=== PATIENT | male | born 1990 | race Caucasian/White ===

== ENCOUNTER 2020-03-25 13:13 | Outpatient (REF) | payer BC, SELFPAY | END 2020-03-25 13:14 | disposition home or self-care (01) | LOC: HO.LAB 13:13 | PROVIDERS: Visit Provider Internal Medicine | DX: Z20.828 Contact with and (suspected) exposure to other viral communicable diseases (principal) | CPT/HCPCS: 87635 ==

== ENCOUNTER 2020-05-16 09:17 | Outpatient (REF) | payer BC, SELFPAY ==
[2020-05-16 10:27] LABS: MANUAL DIFF FLAG NO
[2020-05-16 10:36] LABS: Basophils Percent Auto 0.6 % (0-2); Eosinophils Absolute Auto 0.2 X10*3/uL (0.0-0.4); Eosinophils Percent Auto 3.6 % (0-4); Hematocrit 45.6 % (42-52); Hemoglobin 15.2 g/dl (14.0-18.0); Imm Gran Abs Auto 0.01 X10*3/uL (0.00-0.03); Imm Gran Pct Auto 0.2 % (0.0-0.4); Lymphocytes Absolute Auto 2.3 X10*3/uL (1.2-4.9); Lymphocytes Percent Auto 42.9 % (20-40); Mean Corpuscular HGB Conc 33.3 g/dl (31.0-36.0); Mean Corpuscular Hemoglobin 30.3 pg (27.0-33.0); Mean Platelet Volume 11.9 fL (9.4-12.4); Monocytes Absolute Auto 0.5 X10*3/uL (0.1-1.2); Monocytes Percent Auto 9.6 % (2-11); Neutrophils Absolute Auto 2.3 X10*3/uL (2.0-8.3); Neutrophils Percent Auto 43.1 % (45-73); Platelet Count 198 X10*3/uL (160-400); Red Blood Count 5.01 X10*6/uL (4.60-5.80); Red Cell Distribution Width 13.5 % (11.0-16.0); White Blood Count 5.3 X10*3/uL (4.8-10.8)
[2020-05-16 10:57] LABS: Alanine Aminotransferase 57 U/L (0-40); Albumin Level 4.6 g/dL (3.5-5.0); Alkaline Phosphatase 71 U/L (39-117); Anion Gap 13 (12-20); Aspartate Amino Transferase 55 U/L (5-37); Bilirubin Total 0.5 mg/dL (0.0-1.0); Blood Urea Nitrogen 23 mg/dL (9-16); Calcium 9.6 mg/dL (8.4-10.2); Carbon Dioxide 26 mmol/L (22-29); Chloride 105 mmol/L (96-108); Cholesterol 219 mg/dL; Estimated Glomerular Filt Rate > 60; Glucose Fasting 89 mg/dL (60-99); HDL Cholesterol 60 mg/dL; LDL Cholesterol Calculated 147 mg/dl; Potassium 4.5 mmol/l (3.3-5.1); Sodium 139 mmol/L (135-145); Triglycerides 64 mg/dL
== END 2020-05-16 09:18 | disposition home or self-care (01) ==
LOC: HO.LAB 09:17
PROVIDERS: PCP Internal Medicine; Visit Provider Internal Medicine
DX: E11.9 Type 2 diabetes mellitus without complications (principal); Z00.00 Encounter for general adult medical examination without abnormal findings
CPT/HCPCS: 36415; 80053; 80061; 85025

== ENCOUNTER 2020-06-09 08:21 | Outpatient (REF) | payer BC, SELFPAY | END 2020-06-09 08:22 | disposition home or self-care (01) | LOC: HO.LAB 08:21 | PROVIDERS: PCP Internal Medicine; Visit Provider Internal Medicine | DX: Z20.822 Contact with and (suspected) exposure to COVID-19 (principal) | CPT/HCPCS: 36415; C9803; U0003 ==

== ENCOUNTER 2020-06-25 13:25 | Outpatient (REF) | payer BC, SELFPAY | END 2020-06-25 13:26 | disposition home or self-care (01) | LOC: HO.LAB 13:25 | PROVIDERS: PCP Internal Medicine; Visit Provider Internal Medicine | DX: Z20.822 Contact with and (suspected) exposure to COVID-19 (principal) | CPT/HCPCS: 36415; C9803; U0003 ==

== ENCOUNTER 2020-08-22 08:48 | Outpatient (REF) | payer BC, SELFPAY | END 2020-08-22 08:49 | disposition home or self-care (01) | LOC: HO.LAB 08:48 | PROVIDERS: Visit Provider Internal Medicine | DX: Z20.822 Contact with and (suspected) exposure to COVID-19 (principal) | CPT/HCPCS: 36415; C9803; U0003; U0005 ==

== ENCOUNTER 2020-12-14 06:57 | Emergency (ER) | payer BC, SELFPAY ==
[2020-12-14 06:59] VITALS: BP 102/57; PULSE 85; RESP 16; TEMP 36.6; O2SAT 97; BMI 26.9
--- NOTE | 2020-12-14 07:08 | ED_ITS ---
HPI - Allergic Reaction General Chief complaint: Allergic Reaction Stated complaint: allergic reaction Time Seen by Provider: 12/14/20 07:03 Source: patient Limitations: no limitations History of Present Illness MD complaint: allergic reaction, hives and facial swelling Onset (ago): hour(s) (1) Exposure: medication (antibiotic - leftover took due to sinus issue) Symptoms: rash, itching, facial swelling, lip swelling and hoarseness Severity: severe Treatment prior to arrival: none Previous Allergic Reaction History: prior ED visit(s) and anaphylaxis Related Data Home Medications Medication Instructions Recorded Confirmed doxycycline hyclate 100 mg capsule 100 mg PO DAILY 05/09/20 05/09/20 Previous Rx's Medication Instructions Recorded epinephrine 0.3 mg IM Q10M PRN #2 ea 12/14/20 famotidine [Pepcid] 20 mg PO DAILY 7 Days #30 tab 12/14/20 prednisone 40 mg PO DAILY 5 Days #10 tab 12/14/20 Allergies Allergy/AdvReac Type Severity Reaction Status Date / Time aspirin [ASA] Allergy Mild UNKNOWN Verified 12/14/20 06:59 amoxicillin Allergy Anaphylaxis Verified 12/14/20 07:21 Review of Systems Review of Systems: Constitutional : No Fever, No Chills ENT/Mouth : positive oral swelling, pos Hoarseness, No Swallowing Difficulty Eyes: No Eye Pain, No Swelling, No Redness Cardiovascular : No Chest Pain, pos SOB Respiratory : No Cough, No Sputum, No Wheezing, No Smoke Exposure, No Dyspnea Gastrointestinal : No Nausea, No Vomiting, No Diarrhea, No abdominal Pain Genitourinary : No Dysuria, No Urinary Frequency, No Hematuria Musculoskeletal : No joint pain, No Myalgias, No Joint Swelling Skin : pos Skin Lesions, positive rash Neuro : No Weakness, No Numbness, No Headache Psych : No Anxiety/Panic, No Depression Heme/Lymph: No Bruising, No Lymphadenopathy Endocrine : No Polyuria, No Polydipsia All other systems reviewed and are negative [facility] Past Medical History Attestation statement: The following information was validated with the patient. Medical History Anaphylaxis Seasonal allergies Surgical History No pertinent past surgical history Family History Family History Father No problems noted. Mother No problems noted. Social History Social History (Updated 12/14/20 @ 07:10 by Raissa Guthrie DO) Alcohol intake: current Alcohol intake frequency: a few times a week Patient Tobacco Use Status: Never used Tobacco Advance Directives: No Advance Directives Information Provided: No Physical Exam Vital Signs: Vital Signs: Last Vital Signs Temp 97.8 F 12/14/20 06:59 Pulse 76 12/14/20 07:56 Resp 17 12/14/20 07:56 BP 116/57 L 12/14/20 07:56 Pulse Ox 99 12/14/20 07:56 Body Mass Index 26.9 Appearance: Alert. Oriented X3. Anxious mild acute distress. Eyes: Pupils equal, round and reactive to light. ENT: lip upper and lower moderate swelling no swelling noted on tongue or posteriorly voice sounds raspy Neck: Normal inspection. Neck supple. CVS: Normal heart rate and rhythm. Pulses normal. Respiratory: No respiratory distress. Breath sounds normal. no stridor Abdomen: Soft and nontender. Skin: Skin warm and dry. Erythema and diffuse hives Extremities: No lower extremity edema. No calf ttp Neuro: Oriented X 3. No motor deficit. No sensory deficit. Course Course Course Narrative: patient drastically improved at this time PATIENTS ALLERGY IS AMOXICILLIN symptoms fully resolved at 2 hour davis wants to leave, stable for DC MDM - Allergic Reaction MDM Narrative Medical decision making narrative: 30 yo male with prior allergic reaction requiring epi - unknown cause at that time was Rx epi but did not fill prescription today took a leftover antibiotics as he thought he had a sinus infection in 1 hour diffuse hives lip swelling and raspy itching voice, on arrival airway patent - IM epi, solumedrol, benadryl, pepcid ordered, patient trying to find the name of the antibiotic, will need close observation and possible repeat dosing of epi. Critical Care Time Critical Care Time Critical Care Time: Yes Total Critical Care Time: 35 Attestation: anaphylaxis care, IM epi I attest to this time spent taking care of the patient Discharge Plan Discharge Clinical Impression: Anaphylaxis Qualifiers: Encounter type: initial encounter Qualified Code(s): T78.2XXA - Anaphylactic shock, unspecified, initial encounter Angioedema Qualifiers: Encounter type: initial encounter Qualified Code(s): T78.3XXA - Angioneurotic edema, initial encounter Patient Disposition: Home, Self-Care Instructions: Anaphylaxis (ED), Angioedema (ED) Additional Instructions: return to ED for any worsening symptoms or concerns DO NOT TAKE AMOXICILLIN PLEASE SEE AN ADMINISTRATIVE COORDINATOR Prescriptions: New prednisone 20 mg tablet 40 mg PO DAILY 5 Days Qty: 10 RF: 0 famotidine [Pepcid] 20 mg tablet 20 mg PO DAILY 7 Days Qty: 30 RF: 0 epinephrine 0.3 mg/0.3 mL auto-injector 0.3 mg IM Q10M PRN (Reason: anaphylaxis) Qty: 2 RF: 0 No Action doxycycline hyclate 100 mg capsule 100 mg PO DAILY RF: 0 Stand Alone Forms: Work/School Release
[2020-12-14 07:13] VITALS: BP 110/52; PULSE 78
[2020-12-14] MEDS: methylPREDNISolone Sod Succ 125 MG/2 ML VIAL IVPUSH (07:13)
[2020-12-14] MEDS: EPINEPHrine 1 MG/ML VIAL 0.3 MG IM (07:13)
[2020-12-14] MEDS: diphenhydrAMINE HCL 50 MG/ML VIAL 25 MG IVPUSH (07:15)
[2020-12-14] MEDS: Famotidine/PF 20 MG/2 ML VIAL IVPUSH (07:15)
[2020-12-14] MEDS: 0.9 % Sodium Chloride 1,000 ML 999 ML IVCONT (07:16)
[2020-12-14 07:56] VITALS: BP 116/57; PULSE 76; RESP 17; O2SAT 99
== END 2020-12-14 09:09 | disposition home or self-care (01) ==
PROVIDERS: Emergency Provider Emergency Medicine; PCP Internal Medicine
DX: L23.9 Allergic contact dermatitis, unspecified cause (principal); R22.9 Localized swelling, mass and lump, unspecified; T78.2XXA Anaphylactic shock, unspecified, initial encounter; T78.3XXA Angioneurotic edema, initial encounter; Z79.899 Other long term (current) drug therapy
CPT/HCPCS: 96365; 96372; 96375; 99283; 99284; J0171; J1200; J2930

== ENCOUNTER 2021-06-02 06:51 | Outpatient (REF) | payer BC, SELFPAY ==
[2021-06-02 07:02] LABS: MANUAL DIFF FLAG NO
[2021-06-02 07:37] LABS: Basophils Percent Auto 0.2 % (0-2); Eosinophils Percent Auto 0.2 % (0-4); Hematocrit 47.6 % (42.0-52.0); Hemoglobin 15.3 g/dl (14.0-18.0); Imm Gran Abs Auto 0.02 X10*3/uL (0.00-0.03); Imm Gran Pct Auto 0.3 % (0.0-0.4); Lymphocytes Absolute Auto 1.4 X10*3/uL (1.2-4.9); Lymphocytes Percent Auto 24.4 % (20-40); Mean Corpuscular HGB Conc 32.1 g/dl (31.0-36.0); Mean Corpuscular Hemoglobin 29.7 pg (27.0-33.0); Mean Corpuscular Volume 92.4 fL (80.0-98.0); Mean Platelet Volume 11.3 fL (9.4-12.4); Monocytes Absolute Auto 0.3 X10*3/uL (0.1-1.2); Monocytes Percent Auto 5.6 % (2-11); Neutrophils Absolute Auto 4.1 x10*3/uL (2.0-8.3); Neutrophils Percent Auto 69.3 % (45-73); Platelet Count 213 X10*3/uL (160-400); Red Blood Count 5.15 X10*6/uL (4.60-5.80); Red Cell Distribution Width 13.7 % (11.0-16.0); White Blood Count 5.9 X10*3/uL (4.8-10.8)
[2021-06-02 08:00] LABS: Alanine Aminotransferase 68 U/L (0-40); Albumin Level 4.7 g/dL (3.5-5.0); Alkaline Phosphatase 66 U/L (39-117); Anion Gap 11 (12-20); Aspartate Amino Transferase 37 U/L (5-37); Bilirubin Total 0.3 mg/dL (0.0-1.0); Blood Urea Nitrogen 18 mg/dL (9-16); Carbon Dioxide 27 mmol/L (22-29); Chloride 106 mmol/L (96-108); Cholesterol 188 mg/dL; Estimated Glomerular Filt Rate > 60; Glucose Fasting 117 mg/dL (60-99); HDL Cholesterol 60 mg/dL; LDL Cholesterol Calculated 119 mg/dl; Potassium 4.4 mmol/L (3.3-5.1); Sodium 140 mmol/L (135-145); Total Protein 8.4 g/dL (6.5-8.0); Triglycerides 46 mg/dL
[2021-06-02 08:20] LABS: Thyroid Stimulating Hormone 0.57 uIU/mL (0.32-4.0)
[2021-06-06 19:21] LABS: Testosterone, Total 493 ng/dL (250-1100)
== END 2021-06-02 06:52 | disposition home or self-care (01) ==
LOC: HO.LAB 06:51
PROVIDERS: PCP Internal Medicine; Visit Provider Internal Medicine
DX: Z00.00 Encounter for general adult medical examination without abnormal findings (principal); Z13.0 Encounter for screening for diseases of the blood and blood-forming organs and certain disorders involving the immune mechanism; R53.83 Other fatigue
CPT/HCPCS: 36415; 80053; 80061; 84402; 84403; 84443; 85025

== ENCOUNTER 2021-06-02 09:53 | Outpatient (REF) | payer BC, SELFPAY ==
[2021-06-02 12:28] LABS: Binax Internal Control QC Valid; Binax Lot number: 9864; Binax Now Covid-19 Ag Positive (Negative)
== END 2021-06-02 09:54 | disposition home or self-care (01) ==
LOC: HO.LAB 09:53
PROVIDERS: Visit Provider Internal Medicine
DX: Z20.822 Contact with and (suspected) exposure to COVID-19 (principal)
CPT/HCPCS: 36415

== ENCOUNTER 2021-10-01 22:08 | Emergency (ER) | payer BC, SELFPAY ==
[2021-10-01 22:37] VITALS: BP 125/77; PULSE 66; RESP 17; TEMP 36.6; O2SAT 99; BMI 27.8
[2021-10-01 22:50] VITALS: BP 125/77; PULSE 65; RESP 18; TEMP 36.6; O2SAT 99
--- NOTE | 2021-10-01 22:55 | PC.NURSE ---
pt presents to dept after he developed a rash over about 2 weeks ago. rash covers entire body with exception of the face and palms of hands. pt admits he did change laundry detergents recently. denies SOB/chest pain, denies fever, chills, recent infection, travel, or sick contacts
--- NOTE | 2021-10-01 23:06 | ED_ITS ---
HPI - Skin/Abscess/Foreign Bdy General Chief complaint: Skin/Abscess/Foreign Body Stated complaint: rash Source: patient Mode of arrival: ambulatory Limitations: no limitations History of Present Illness HPI narrative: 31-year-old male presents with 2 weeks of a a full-body rash that started after he changed laundry detergents. Patient has been taking Benadryl every 6 hours with poor effect and also used his EpiPen yesterday. MD complaint: rash Onset (ago): week(s) (2) Tetanus up to date: yes Location: generalized Severity: moderate Severity scale (1-10): 7 Quality: burning Pain Consistency: constant Relieving factors: none Exacerbating factors: palpation and movement Context: other (New household products) Associated symptoms: itching Treatments prior to arrival: OTC topical medication and Benadryl Related Data Previous Rx's Medication Instructions Recorded epinephrine 0.3 mg/0.3 mL 0.3 mg (0.3 mL) IM Q10M PRN #2 ea 12/14/20 injection, auto-injector epinephrine 0.3 mg/0.3 mL 0.3 mg (0.3 mL) IM Q4H PRN #1 ea 10/02/21 injection, auto-injector (EpiPen 2-Rad) famotidine 20 mg tablet (Pepcid) 20 mg PO BID 7 Days #14 tab 10/02/21 prednisone 20 mg tablet 60 mg PO DAILY 7 Days #21 tab 10/02/21 Allergies Allergy/AdvReac Type Severity Reaction Status Date / Time aspirin [ASA] Allergy Mild UNKNOWN Verified 05/11/21 08:50 amoxicillin Allergy Anaphylaxis Verified 05/11/21 08:50 Review of Systems Review of Systems: Constitutional: No Fever, No Chills ENT/Mouth: No oral swelling, No Hoarseness, No Swallowing Difficulty Eyes: No Eye Pain, No Swelling, No Redness Cardiovascular: No Chest Pain, No SOB Respiratory: No Cough, No Sputum, No Wheezing, No Smoke Exposure, No Dyspnea Gastrointestinal: No Nausea, No Vomiting, No Diarrhea, No abdominal Pain Genitourinary: No Dysuria, No Urinary Frequency, No Hematuria Musculoskeletal: No joint pain, No Myalgias, No Joint Swelling Skin: No Skin Lesions, positive rash Neuro: No Weakness, No Numbness, No Headache Psych: No Anxiety/Panic, No Depression Heme/Lymph: No Bruising, No Lymphadenopathy Endocrine: No Polyuria, No Polydipsia Yes all other systems are reviewed and are negative [facility] Past Medical History Attestation statement: The following information was validated with the patient. Source: old records reviewed Medical History Anaphylaxis Seasonal allergies Surgical History No pertinent past surgical history Family History Family History Father No problems noted. Mother No problems noted. Social History Social History Housing: House Alcohol intake: current Alcohol intake frequency: a few times a week Patient Tobacco Use Status: Never used Tobacco e-Cigarette/Vaping Use: Never Used Second Hand Smoke Exposure: No Advance Directives: No service: No Current occupational status: employed Cognitive needs: No Hearing needs: No Vision needs: No Physical Exam Vital Signs: Vital Signs: Last Vital Signs Temp 98 F 10/01/21 22:50 Pulse 65 10/01/21 22:50 Resp 18 10/01/21 22:50 BP 125/77 10/01/21 22:50 Pulse Ox 99 10/01/21 22:50 BMI result Body Mass Index 27.8 Appearance: Alert. Oriented X3. No acute distress. Eyes: Pupils equal, round and reactive to light. ENT: Pharynx normal. Neck: Normal inspection. Neck supple. CVS: Normal heart rate and rhythm. Pulses normal. Respiratory: No respiratory distress. Lung sounds clear to all lobes. Abdomen: Soft and nontender. Skin: Diffuse erythematous rash consistent with contact dermatitis, Skin warm and dry. Normal skin color. Normal skin turgor. Extremities: No lower extremity edema. Gait well-balanced well coordinated. Neuro: No motor deficit. No sensory deficit. Cranial nerves 2-12 intact. Course Course Course Narrative: 31-year-old male presents diffuse generalized erythematous rash consistent with contact dermatitis. Stated that he used a new laundry detergent approximately 2 weeks ago. Has been taking Benadryl 50 mg every 6 hours with poor effect. Thought that his EpiPen would be better so he used it yesterday. Patient does not have any wheezing, stridor, has a clear airway. Will give Solu-Medrol and Pepcid. 23:57 rash is less red, will discharge home with prednisone 60 mg for the next 5 days. Pepcid 20 mg twice a day for the next 5 days. Patient will continue using Benadryl every 6 hours as needed. He does understand that he must discontinue using the product that is giving him the rash. EpiPen teaching provided by this DEVELOPMENT TECHNOLOGIST. Patient does understand that he can only use EpiPen if he is having airway issues. Thank you for choosing this emergency department for evaluation. Please follow-up with primary care physician as needed. Return to the emergency department for any new, concerning, or worsening symptoms. MDM - Skin/Abscess/Foreign Bdy Differential Diagnosis Differential diagnosis: Likely viral exanthem, urticaria and contact dermatitis Medical Records Attestation: I reviewed the patient's medical records. Discharge Plan Discharge Clinical Impression: Viral exanthem, Contact dermatitis, Allergic reaction Patient Disposition: Home, Self-Care Instructions: Contact Dermatitis (ED), General Allergic Reaction (ED), Allergy Testing (ED) Additional Instructions: You were evaluated for allergic reaction. Please take prednisone 60 mg for the next 7 days. Take Pepcid 20 mg twice a day for the next 7 days. Take Benadryl 50 mg every 6 hours as needed for itching. You must follow-up with primary care physician for allergy testing. Only use your EpiPen if you have airway issues. That means use EpiPen only if you are having trouble breathing. Thank you for choosing this emergency department for evaluation. Please follow-up with primary care physician as needed. Return to the emergency department for any new, concerning, or worsening symptoms. Prescriptions: New prednisone 20 mg tablet 60 mg PO DAILY 7 Days Qty: 21 0RF famotidine [Pepcid] 20 mg tablet 20 mg PO BID 7 Days Qty: 14 0RF Rx Instructions: May substitute for medication covered by insurance epinephrine [EpiPen 2-Rad] 0.3 mg/0.3 mL auto-injector 0.3 mg IM Q4H PRN (Reason: anaphylaxis) Qty: 1 0RF No Action epinephrine 0.3 mg/0.3 mL auto-injector 0.3 mg IM Q10M PRN (Reason: anaphylaxis) Qty: 2 0RF Rx Instructions: for 2 doses Referrals: Lon Morris MD [Primary Care Provider] - (Allergic reaction)
[2021-10-01] MEDS: methylPREDNISolone Sod Succ 125 MG/2 ML VIAL IVPUSH (23:32)
[2021-10-01] MEDS: Famotidine/PF 20 MG/2 ML VIAL IVPUSH (23:32)
== END 2021-10-02 00:25 | disposition home or self-care (01) ==
PROVIDERS: Emergency Provider Emergency Medicine Emergency Medical Services; PCP Internal Medicine
DX: L23.9 Allergic contact dermatitis, unspecified cause (principal); B09 Unspecified viral infection characterized by skin and mucous membrane lesions; Z79.899 Other long term (current) drug therapy
CPT/HCPCS: 96374; 96375; 99284; J2930

== ENCOUNTER 2023-05-20 09:39 | Outpatient (AMB) | payer OTHER, SELFPAY ==
[2023-05-20 09:42] VITALS: BP 124/82; PULSE 60; O2SAT 98; BMI 30.7
--- NOTE | 2023-05-20 09:42 | MHC.PC.OV ---
Vital Signs 05/20/23 09:42 Height 5 ft 11 in Weight 220 lb BMI 30.7 BP 124/82 Blood Pressure Location Lt brachial Position Sitting Pulse 60 Pulse Source Pulse Oximeter Pulse Oximetry (%) 98 Oxygen Delivery Method Room Air Intake Visit Reasons: PE Meter Changes Records Clerk Required: No Reed Man: Not Required per policy Accompanied by: Self / Same As Patient Allergies aspirin [ASA] Allergy (Mild, Verified 05/20/23 09:42) UNKNOWN amoxicillin Allergy (Verified 05/20/23 09:42) Anaphylaxis Medication List - Last Reconciled 05/20/23 by Lon Morris MD epinephrine 0.3 mg (0.3 mL) IM Q10M PRN epinephrine (EpiPen 2-Rad) 0.3 mg (0.3 mL) IM Q4H PRN ibuprofen 800 mg PO Q8H PRN Tobacco use date assessed: 05/20/23 Dental Screening Dental Screen Date: 05/20/23 Did you have a dental visit in the last 12 months?: Yes Did you have a dental problem in the last 6 months where you did not have access to dental care?: No Was dental information given to patient?: Patient has dentist HPI PE HPI Details healthy; [facility] Medical History Anaphylaxis Seasonal allergies Surgical History No pertinent past surgical history Family History Father No problems noted. Mother No problems noted. Social History Housing: House Alcohol intake: current Alcohol intake frequency: a few times a week Patient Tobacco Use Status: Never used Tobacco e-Cigarette/Vaping Use: Never Used Second Hand Smoke Exposure: No service: No Current occupational status: employed Cognitive needs: No Hearing needs: No Vision needs: No Questionnaire PHQ-9 Over the last 2 weeks, how often have you been bothered by any of the following problems? 1. Little interest or pleasure in doing things: not at all 2. Feeling down, depressed, or hopeless: not at all 3. Trouble falling or staying asleep, or sleeping too much: not at all 4. Feeling tired or having little energy: not at all 5. Poor appetite or overeating: not at all 6. Feeling bad about yourself - or that you are a failure or have let yourself or your family down: not at all 7. Trouble concentrating on things, such as reading the newspaper or watching television: not at all 8. Moving or speaking so slowly that other people could have noticed. Or the opposite - being so fidgety or restless that you have been moving around a lot more than usual: not at all 9. Thoughts that you would be better off or of hurting yourself in some way: not at all Total score: 0 Depression Screening Interpretation: Negative Depression Screening Done: Yes 08756 - PHQ-9 Billing: Yes Source: Developed by Drs. Eloy Wills, Lori Matute, Brice Garcia and colleagues, with an educational neeraj from [employer]. Thrive Questionnaire Date Thrive assessed: 05/20/23 I am a: Patient What is your living situation today?: I have a steady place to live Within the past 12 months, did the food you bought not last and you didn't have the money to get more?: Never true Within the past 12 months, did you worry whether your food would run out before you got money to buy more?: Never true Do you have trouble paying for medicines?: No Do you have trouble getting transportation to medical appointments?: No Do you have trouble paying your heating and electricity bill?: No Do you have trouble taking care of your child, family member or friend?: No Do you have trouble with day-to-day activities such as bathing, preparing meals, shopping, managing finances, etc.?: No Are you currently unemployed and looking for a job?: No Are you interested in more education?: No Please select the resources that you would like help with: None AUDIT C Alcohol Use Questionnaire (AUDIT-C) 1. How often do you have a drink containing alcohol?: Monthly or less 2. How many drinks containing alcohol do you have on a typical day when you are drinking?: 1 or 2 3. How often do you have six or more drinks on one occasion?: Never Total Score: 1 MARLEEN-7 AMB Questionnaire MARLEEN-7 Date MARLEEN - 7 assessed: 05/20/23 Feeling nervous, anxious, or on edge: 0 = Not at all Not being able to stop or control worryin = Not at all Worrying too much about different things: 0 = Not at all Trouble relaxin = Not at all Being so restless that it is hard to sit still: 0 = Not at all Becoming easily annoyed or irritable: 0 = Not at all Feeling afraid as if something awful might happen: 0 = Not at all Total MARLEEN-7 score (0-4 normal; 5-9 mild; 10-14 moderate; 15-21 severe): 0 Source: Developed by Drs. Eloy Wills, Lori Matute, Brice Garcia and colleagues, with an educational neeraj from [employer]. MARLEEN-7 Assessment Billing MARLEEN-7 Assessment Tool: MARLEEN-7 Assessment 28693 Review of Systems Const Denies chills, Denies fatigue, Denies headache(s) and Denies weight loss Eyes Denies change in vision, Denies diplopia and Denies eye pain ENT Denies vertigo, Denies dizziness, Denies headache(s) and Denies nasal discharge Card Denies chest pain, Denies rapid heart rate and Denies dyspnea on exertion Resp Denies chest congestion, Denies cough, Denies pain with cough and Denies dyspnea on exertion GI Denies abdominal pain, Denies hematochezia and Denies change in bowel habits Musc Denies myalgias, Denies arthralgias and Denies joint swelling Skin/Breast Denies lesions and Denies unusual bruising Neuro Denies vertigo, Denies dizziness, Denies headache(s) and Denies focal weakness Endo Denies fatigue Physical exam (Primary Care) Vital Signs: Last Vital Signs Pulse 60 05/20/23 09:42 BP 124/82 05/20/23 09:42 Pulse Ox 98 05/20/23 09:42 Oxygen Delivery Method Room Air 05/20/23 09:42 BMI result Body Mass Index 30.7 Tobacco/Smoking Status: Tobacco use Status Tobacco use date assessed 05/20/23 05/20/23 09:43 Patient Tobacco Use Status Never used Tobacco 05/20/23 09:43 e-Cigarette/Vaping Use Never Used 05/20/23 09:43 PHQ-9: PHQ-9 Score PHQ-9: Total score 0 05/20/23 09:43 Depression Screening Interpretation: Negative Thrive Assessment: Date of Thrive Assessment Date Thrive assessed 05/20/23 05/20/23 09:43 Const General: cooperative, healthy appearing and no acute distress Orientation/consciousness: oriented to person, oriented to place and oriented to time HENMT Head: Yes normal to inspection, Yes normocephalic and Yes atraumatic Mouth: Normal oral and palatal mucosa present and tongue normal Throat: Yes posterior oropharynx normal and Yes uvula midline Eyes General: appearance normal, both eyes and all related structures Neck Neck: Yes normal visual inspection, Yes full ROM and Yes no lymphadenopathy Thyroid: Thyroid normal Carotids: normal carotid upstroke Chest Chest palpation & inspection: normal inspection of the chest Resp Effort & Inspection: normal respiratory effort and able to speak in complete sentences Auscultation: clear to auscultation bilaterally Cardio Jugular venous distension: no JVD Palpation: normal PMI Rate: regular rate Rhythm: regular rhythm Heart sounds: S1 normal heart sound present and S2 normal heart sound present GI Inspection: Yes normal to inspection Palpation (GI): Soft to palpation and No hepatosplenomegaly present Auscultation: normal bowel sounds General: Yes no CVA tenderness Back/Spine/Pelvis Back: no CVA tenderness Skin General skin exam: no rashes or lesions noted Neuro General: oriented to person, oriented to place and oriented to time Extrem General: Yes normal to inspection and Yes full ROM Assessment and Plan Assessment & Plan (1) Physical exam: Code(s): Z00.00 - Encounter for general adult medical examination without abnormal findings Plan: stable; do labs Orders: Orders Lipid Panel Today E78.5 - Hyperlipidemia, unspecified Complete Blood Count Auto Diff Today D64.9 - Anemia, unspecified Comprehensive [place]. Panel Fast Today N28.9 - Disorder of kidney and ureter, unspecified Coding Level of Care Code Est Pt Prev Care 18-39y(37697) Diagnoses Physical exam Z00.00 Additional Codes MARLEEN-7 Assessment Billing - MARLEEN-7 Assessment Tool: MARLEEN-7 Assessment [id number] ([id number])
== END 2023-05-20 09:54 | disposition home or self-care (01) ==
PROVIDERS: Visit Provider Internal Medicine
DX: Z00.00 Encounter for general adult medical examination without abnormal findings (principal)
CPT/HCPCS: 99395

== ENCOUNTER 2023-05-20 10:01 | Outpatient (REF) | payer OTHER, SELFPAY ==
[2023-05-20 10:16] LABS: MANUAL DIFF FLAG NO
[2023-05-20 10:36] LABS: Basophils Absolute Auto 0.1 X10*3/uL (0.0-0.2); Basophils Percent Auto 0.9 % (0-2); Eosinophils Absolute Auto 0.6 X10*3/uL (0.0-0.4); Eosinophils Percent Auto 8.1 % (0-4); Hematocrit 47.8 % (42.0-52.0); Hemoglobin 15.9 g/dl (14.0-18.0); Imm Gran Abs Auto 0.02 X10*3/uL (0.00-0.03); Imm Gran Pct Auto 0.3 % (0.0-0.4); Lymphocytes Absolute Auto 2.3 X10*3/uL (1.2-4.9); Lymphocytes Percent Auto 34.3 % (20-40); Mean Corpuscular HGB Conc 33.3 g/dl (31.0-36.0); Mean Corpuscular Volume 90.2 fL (80.0-98.0); Mean Platelet Volume 11.2 fL (9.4-12.4); Monocytes Absolute Auto 0.7 X10*3/uL (0.1-1.2); Monocytes Percent Auto 10.2 % (2-11); Neutrophils Absolute Auto 3.2 x10*3/uL (2.0-8.3); Neutrophils Percent Auto 46.2 % (45-73); Platelet Count 208 X10*3/uL (160-400); Red Cell Distribution Width 13.7 % (11.0-16.0); White Blood Count 6.8 X10*3/uL (4.8-10.8)
[2023-05-20 11:23] LABS: Alanine Aminotransferase 39 U/L (0-40); Albumin Level 4.6 g/dL (3.5-5.0); Alkaline Phosphatase 87 U/L (39-117); Anion Gap 12 (12-20); Aspartate Amino Transferase 37 U/L (5-37); Bilirubin Total 0.7 mg/dL (0.0-1.0); Blood Urea Nitrogen 17 mg/dL (9-16); Calcium 9.8 mg/dL (8.4-10.2); Carbon Dioxide 27 mmol/L (22-29); Chloride 104 mmol/L (96-108); Cholesterol 204 mg/dL (<200); Estimated Glomerular Filt Rate > 60; Glucose Fasting 92 mg/dL (60-99); HDL Cholesterol 64 mg/dL (>40); LDL Cholesterol Calculated 127 mg/dL (<100); Potassium 4.4 mmol/L (3.3-5.1); Sodium 139 mmol/L (135-145); Total Protein 8.4 g/dL (6.5-8.0); Triglycerides 65 mg/dL (<150)
== END 2023-05-20 10:02 | disposition home or self-care (01) ==
LOC: HO.LAB 10:01
PROVIDERS: PCP Internal Medicine; Visit Provider Internal Medicine
DX: E78.5 Hyperlipidemia, unspecified (principal); D64.9 Anemia, unspecified; N28.9 Disorder of kidney and ureter, unspecified
CPT/HCPCS: 36415; 80053; 80061; 85025

== ENCOUNTER 2024-05-28 10:12 | Outpatient (AMB) | payer OTHER, SELFPAY ==
[2024-05-28 10:18] VITALS: BP 126/84; PULSE 93; O2SAT 93; BMI 30.8
--- NOTE | 2024-05-28 10:18 | A.OFFPC_ITS ---
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 Accompanied by: Self / Same As Patient Allergies aspirin [ASA] Allergy (Mild, Verified 05/28/24 10:20) UNKNOWN amoxicillin Allergy (Verified 05/28/24 10:20) Anaphylaxis Medication List - Last Reconciled 05/28/24 by Lon Morris MD epinephrine 0.3 mg (0.3 mL) IM Q10M PRN epinephrine (EpiPen 2-Rad) 0.3 mg (0.3 mL) IM Q4H PRN ibuprofen 800 mg PO Q8H PRN Tobacco use date assessed: 05/28/24 Dental Screening Dental Screen Date: 05/28/24 Did you have a dental visit in the last 12 months?: Yes Did you have a dental problem in the last 6 months where you did not have access to dental care?: No Was dental information given to patient?: Patient has dentist HPI pe HPI Details Healthy PFSH Medical History Anaphylaxis Seasonal allergies Surgical History No pertinent past surgical history Family History Father No problems noted. Mother No problems noted. Social History Housing: House Alcohol intake: current Alcohol intake frequency: a few times a week Patient Tobacco Use Status: Never used Tobacco e-Cigarette/Vaping Use: Never Used Second Hand Smoke Exposure: No service: No Current occupational status: employed Cognitive needs: No Hearing needs: No Vision needs: No Questionnaire PHQ-9 Over the last 2 weeks, how often have you been bothered by any of the following problems? 1. Little interest or pleasure in doing things: not at all 2. Feeling down, depressed, or hopeless: not at all 3. Trouble falling or staying asleep, or sleeping too much: not at all 4. Feeling tired or having little energy: not at all 5. Poor appetite or overeating: not at all 6. Feeling bad about yourself - or that you are a failure or have let yourself o r your family down: not at all 7. Trouble concentrating on things, such as reading the newspaper or watching television: not at all 8. Moving or speaking so slowly that other people could have noticed. Or the opposite - being so fidgety or restless that you have been moving around a lot more than usual: not at all 9. Thoughts that you would be better off or of hurting yourself in some way: not at all Total score: 0 Depression Screening Interpretation: Negative Depression Screening Done: Yes 62639 - PHQ-9 Billing: Yes Source: Developed by Drs. Eloy Wills, Lori Matute, Brice hyatt nd colleagues, with an educational neeraj from [employer]. Thrive Questionnaire Date Thrive assessed: 05/28/24 I am a: Patient What is your living situation today?: I have a steady place to live Within the past 12 months, did the food you bought not last and you didn't have the money to get more?: Never true Within the past 12 months, did you worry whether your food would run out before you got money to buy more?: Never true Do you have trouble paying for medicines?: No Do you have trouble getting transportation to medical appointments?: No Do you have trouble paying your heating and electricity bill?: No Do you have trouble taking care of your child, family member or friend?: No Do you have trouble with day-to-day activities such as bathing, preparing meals, shopping, managing finances, etc.?: No Are you currently unemployed and looking for a job?: No Are you interested in more education?: No Please select the resources that you would like help with: None THRIVE Score: 0 AUDIT C Alcohol Use Questionnaire (AUDIT-C) 1. How often do you have a drink containing alcohol?: Monthly or less 2. How many drinks containing alcohol do you have on a typical day when you are drinking?: 1 or 2 3. How often do you have six or more drinks on one occasion?: Never Total Score: 1 MARLEEN-7 AMB Questionnaire MARLEEN-7 Date MARLEEN - 7 assessed: 05/28/24 Feeling nervous, anxious, or on edge: 0 = Not at all Not being able to stop or control worryin = Not at all Worrying too much about different things: 0 = Not at all Trouble relaxin = Not at all Being so restless that it is hard to sit still: 0 = Not at all Becoming easily annoyed or irritable: 0 = Not at all Feeling afraid as if something awful might happen: 0 = Not at all Total MARLEEN-7 score (0-4 normal; 5-9 mild; 10-14 moderate; 15-21 severe): 0 Source: Developed by Drs. Eloy Wills, Lori Matute, Brice Garcia and colleagues, with an educational neeraj from [employer]. MARLEEN-7 Assessment Billing MARLEEN-7 Assessment Tool: MARLEEN-7 Assessment 76963 Review of Systems Const Denies chills, Denies fatigue, Denies headache(s) and Denies weight loss Eyes Denies change in vision, Denies diplopia and Denies eye pain ENT Denies vertigo, Denies dizziness, Denies headache(s) and Denies nasal discharge Card Denies chest pain, Denies rapid heart rate and Denies dyspnea on exertion Resp Denies chest congestion, Denies cough, Denies pain with cough and Denies dyspnea on exertion GI Denies abdominal pain, Denies hematochezia and Denies change in bowel habits Musc Denies myalgias, Denies arthralgias and Denies joint swelling Skin/Breast Denies lesions and Denies unusual bruising Neuro Denies vertigo, Denies dizziness, Denies headache(s) and Denies focal weakness Endo Denies fatigue Physical exam (Primary Care) Vital Signs: Last Vital Signs Pulse 93 05/28/24 10:18 BP 126/84 05/28/24 10:18 Pulse Ox 93 05/28/24 10:18 Oxygen Delivery Method Room Air 05/28/24 10:18 BMI result Body Mass Index 30.8 Tobacco/Smoking Status: Tobacco use Status Tobacco use date assessed 05/28/24 05/28/24 10:22 Patient Tobacco Use Status Never used Tobacco 05/28/24 10:22 e-Cigarette/Vaping Use Never Used 05/28/24 10:22 PHQ-9: PHQ-9 Score PHQ-9: Total score 0 05/28/24 10:31 Depression Screening Interpretation: Negative Thrive Assessment: Date of Thrive Assessment Date Thrive assessed 05/28/24 05/28/24 10:22 Const General: cooperative, healthy appearing and no acute distress Orientation/consciousness: oriented to person, oriented to place and oriented to time HENAZ Head: Yes normal to inspection, Yes normocephalic and Yes atraumatic Mouth: Normal oral and palatal mucosa present and tongue normal Throat: Yes posterior oropharynx normal and Yes uvula midline Eyes General: appearance normal, both eyes and all related structures Neck Neck: Yes normal visual inspection, Yes full ROM and Yes no lymphadenopathy Thyroid: Thyroid normal Carotids: normal carotid upstroke Chest Chest palpation & inspection: normal inspection of the chest Resp Effort & Inspection: normal respiratory effort and able to speak in complete sentences Auscultation: clear to auscultation bilaterally Cardio Jugular venous distension: no JVD Palpation: normal PMI Rate: regular rate Rhythm: regular rhythm Heart sounds: S1 normal heart sound present and S2 normal heart sound present GI Inspection: Yes normal to inspection Palpation (GI): Soft to palpation and No hepatosplenomegaly present Auscultation: normal bowel sounds General: Yes no CVA tenderness Back/Spine/Pelvis Back: no CVA tenderness Skin General skin exam: no rashes or lesions noted Neuro General: oriented to person, oriented to place and oriented to time Extrem General: Yes normal to inspection and Yes full ROM Office Procedures Flu Questionnaire Does the patient have a severe egg allergy?: No Does the patient have severe life threatening allergies?: No Does the patient have a fever or illness today?: No Has the patient ever had Guillain-Turner Syndrome?: No Has the patient ever had any past reaction to a flu shot?: No Immunizations Fluarix Triv [id number] (PF) 45 mcg (15 mcg x 3)/0.5 mL IM syringe Performing Provider: Lon Morris MD Performing Location: [facility] [place] [facility] Administered by: Ros Hill CMA on 05/28/24 10:35 Dose Route Admin Location Dispensed Lot Number Expiration Date [employer] 0.5 mL IM Left Tricep 0.5 mL [id number] 11/26/24 82855-817-06 [employer] VIS Given Date VIS Provided VIS Publication Date 05/28/24 Single Vaccine 21 Eligibility Eligibility Date Funding Source Not [facility] Eligible 05/28/24 Private Coding Level of Care Code Est Pt Prev Care 18-39y([id number]) Diagnoses Physical exam Z00.00 Additional Codes MARLEEN-7 Assessment Billing - MARLEEN-7 Assessment Tool: MARLEEN-7 Assessment 78513 ([id number]) PHQ-9 - 95419 - PHQ-9 Billing: Yes ([id number]) Assessment & Plan Assessment & Plan (1) Physical exam: Code(s): Z00.00 - Encounter for general adult medical examination without abnormal findings Category: Medical Plan: stable; do labs Orders: Orders Comprehensive Perkins. Panel Fast Today Z13.9 - Encounter for screening, unspecified Complete Blood Count Auto Diff Today Z13.0 - Encounter for screening for di seases of the blood and blood-forming organs and certain disorders involving the immune mechanism Lipid Panel Today Z13.220 - Encounter for screening for lipoid disorders
== END 2024-05-28 10:38 | disposition home or self-care (01) ==
PROVIDERS: PCP Internal Medicine; Visit Provider Internal Medicine
DX: Z23 Encounter for immunization (principal); Z00.00 Encounter for general adult medical examination without abnormal findings

== ENCOUNTER → 2024-05-28 10:12 | Outpatient (BNVA) | payer OTHER, SELFPAY | PROVIDERS: PCP Internal Medicine; Visit Provider Internal Medicine | DX: Z00.00 Encounter for general adult medical examination without abnormal findings (principal); Z23 Encounter for immunization | CPT/HCPCS: 90471; 90656; 96127 ==